=== PATIENT | male | born 1980 | race Caucasian/White ===

== ENCOUNTER 2016-11-22 10:54 | Day surgery (SDC) | payer OTHER ==
[~2016-11-22] VITALS: Ht 180.3 cm; Wt 108.0 kg
[2016-11-22] MEDS ORDERED: FLUO10CA13 PO (11:35)
[2016-11-22] MEDS ORDERED: MULT-245 PO (11:35)
[2016-11-22] MEDS ORDERED: LEVO125T PO (11:35)
[2016-11-22] MEDS ORDERED: CEFAZOLIN 2GM PREMIX 50 ML IV ONE (11:38)
[2016-11-22] MEDS ORDERED: IV RINGERS,LACTATED 1000ML 1,000 ML IV SCH ×2 (11:45→16:31)
[2016-11-22] MEDS ORDERED: LIDOCAINE 2% 100 MG/5 ML DISP.SYRIN. ONE (14:18)
[2016-11-22] MEDS ORDERED: MIDAZOLAM HCL 2 MG/2 ML VIAL. ONE ×2 (14:18→14:20)
[2016-11-22] MEDS ORDERED: PROPOFOL 20 ML IV ONE (14:18)
[2016-11-22] MEDS ORDERED: FAMOTIDINE 20 MG/2 ML VIAL ONE (14:18)
[2016-11-22] MEDS ORDERED: DEXAMETHASONE SOD PHOS 20 MG/5 ML VIAL. ONE (14:18)
[2016-11-22] MEDS ORDERED: ONDANSETRON PF 4 MG/2 ML VIAL. ONE (14:18)
[2016-11-22] MEDS ORDERED: FENTANYL PF 100 MCG/2 ML VIAL. ONE ×2 (14:18→16:37)
[2016-11-22] MEDS ORDERED: BUPIVACAINE MPF 0.5% 30 ML VIAL. ONE (14:27)
--- NOTE | 2016-11-22 14:58 | DISCH ---
DISCHARGE INSTRUCTIONS Condition on Discharge Condition on Discharge: Stable Activity After Discharge Activity Instructions for Disc: Other, see below Other activity instructions: fine motor use left hand only, no lifting or hard grasp Diet after Discharge Diet after Discharge: Regular Wound Incision Care Wound/Incision Care: Ice to area for comfort, Keep wound elevated Other wound/incision instructi: may remove dressing in 2 days Contacting the DRGeraldine after DC Call your doctor for: Concerns you may have Follow-Up Follow up with: Ray 1 week NATALIO PAREDES MD Nov 22, 2016 14:58
[2016-11-22] MEDS ORDERED: OXYC-323 PO (14:59)
[2016-11-22] MEDS ORDERED: SEVOFLURANE 61 TO 120 MINUTES. IH ONE (15:56)
[2016-11-22] MEDS ORDERED: OXYCODONE/APAP 5/325 TABLET. PO ONE (16:30)
[2016-11-22] MEDS: FENTANYL PF 100 MCG/2 ML VIAL. IV PRN ×2 (16:38→16:50)
[2016-11-22] MEDS ORDERED: ONDANSETRON PF 4 MG/2 ML VIAL. IV PRN (16:45)
[2016-11-22] MEDS ORDERED: MORPHINE SULFATE 2 MG/ML DISP.SYRIN. IV PRN (16:45)
[2016-11-22] MEDS ORDERED: FENTANYL PF 100 MCG/2 ML VIAL. IV PRN (16:45)
[2016-11-22] MEDS ORDERED: HYDROMORPHONE 2 MG/ML VIAL. IV PRN (16:45)
[2016-11-22] MEDS ORDERED: PROCHLORPERAZINE 10 MG/2 ML VIAL. IV PRN (16:45)
[2016-11-22] MEDS ORDERED: LIDOCAINE 1% 1 ML SYRINGE. ID PRN (16:45)
[2016-11-22 17:30] VITALS: BP 117/64
--- NOTE | 2016-11-22 22:07 | PDOC ---
BRIEF OPERATIVE NOTE Date: Nov 22, 2016 Pre-Op Diagnosis tfcc tear Post-Op Diagnosis same with central involvement Procedure Performed left wrist scope, debridement of tfcc tear Surgeon Ray Anesthesia Type: General Blood Loss 5cc Findings above Complications none NATALIO PAREDES MD Nov 22, 2016 22:07
--- NOTE | 2016-11-23 14:12 | OP ---
DATE OF SURGERY: 11/22/2016 ORTHOPEDIC OPERATIVE NOTE PREOPERATIVE DIAGNOSIS: Triangular fibrocartilage complex tear, left wrist. POSTOPERATIVE DIAGNOSIS: Triangular fibrocartilage complex tear, left wrist with some lunotriquetral ligament fraying as well. PROCEDURE: Left wrist arthroscopy, debridement of TFCC and lunotriquetral ligament as well as dorsal synovitis. SURGEON: Christiano Bell MD ANESTHESIA: General. ESTIMATED BLOOD LOSS: 5 mL. COMPLICATIONS: None. OPERATIVE INDICATIONS: The patient is a 36-year-old male who by MRI has a TFCC tear of his left wrist and has ongoing ulnar-sided wrist pain, particularly with grasping, pushing, and pulling. I had gone over with him the risks, benefits, postoperative course of the procedure, possibility of protection during healing and the risks of possible infection, nerve or blood vessel damage, medical or other anesthetic complications, continued pain, among others. All his questions were answered. Consent was obtained and he agrees to proceed with operative evaluation and treatment. DESCRIPTION OF PROCEDURE: The patient was identified, procedure verified, patient placed in the supine position on the operating table and after adequate amounts of general endotracheal anesthesia were administered, he was prepped and draped in standard sterile fashion, placed in the arthroscopic arm arguelles, which was secured with Coban wrap to its base. He was placed in the finger traps on the index and small finger and placed under minimal traction. After patient and procedure were identified and verified in the timeout process, the wrist was insufflated with about 10 mL of normal saline solution in the 3-4 dorsal portal, which was then established with incising the skin and opening up with a blunt trocar. A 4-5 portal was then established as a working portal. Significant dorsal synovitis was noted and was trimmed away to help improve visualization. Scapholunate ligament appeared to be well maintained. Peripheral portion of the TFCC appeared to be actually intact. The central portion had a small tear which was debrided back to more stable tissue. Lunotriquetral ligament was noted to have significant fraying and was debrided as well Radial styloid had some small degree of fibrillation of the cartilage, which did not really require debridement and the dorsal aspect of the wrist at the ulnar portion of the radius was noted to have some cartilage thinning, again not requiring specific debridement. Volar aspect of the wrist appeared normal in appearance. No ganglion cyst or other capsular defects were noted. After debridement of the TFCC centrally and synovitis, again the area was probed and rest of the TFCC attachment found to be intact. Wrist was drained of arthroscopic fluid. Portals closed with nylon suture. Sterile dressings were applied. The patient was extubated and transferred to postop holding in stable condition having tolerated the procedure well. CHRISTIANO BELL MD DR: MAL/mark JOB#: [id number] / [id number]
== END 2016-11-22 17:30 | disposition home or self-care (01) ==
LOC: SURG 10:54
PROVIDERS: ATTEND Orthopaedic Surgery
DX: S63.592A Other specified sprain of left wrist, initial encounter (principal); E03.9 Hypothyroidism, unspecified; F41.9 Anxiety disorder, unspecified; Y93.9 Activity, unspecified; X58.XXXA Exposure to other specified factors, initial encounter; Y92.9 Unspecified place or not applicable; Y99.9 Unspecified external cause status; M65.842 Other synovitis and tenosynovitis, left hand
CPT/HCPCS: 29846; J0690; J1100; J2250; J2405; J2704; J3010; J3490; S0028